=== PATIENT | male | born 1945 | race Hispanic/Latino ===

== ENCOUNTER 2023-01-03 14:44 | Emergency (ER) | payer OTHER, MEDICARE ==
[~2023-01-03] VITALS: Ht 165.1 cm; Wt 90.7 kg
[2023-01-03 14:44] VITALS: BP 133/71
--- NOTE | 2023-01-03 14:50 | ER.PDOC ---
General Chief Complaint: Requesting Medical Care Stated Complaint: CHEST PAIN Time seen by MD: 14:49 Source: patient Exam Limitations: no limitations History of Present Illness Initial Comments 77 yo M has had some somewhat atypical chest pain for a few hours today. Traveling cross[place]country in an RV with his from [place] to [place]. Has a cardiac history, stenting, but most recently more than 10 years ago. Follows up regularly with health aide, last cath 1-2 years ago +/-. Timing/Duration: 1-3 hours Severity/Quality: mild, moderate Radiation: no radiation Activities at Onset: other (driving) Prior CP/Workup: Other (prior need for stents) Aspirin Today: 81 mg x 1 Prior symptoms/Treatment: Similar symptoms previous (albeit remotely) Past Medical History Medical History: cardiac problems Surgical History: other (stents) Family History Significant Family History: no pertinent family hx Social History Smoking: non-smoker Reviewed Nursing Reviewed: Vital Signs, Abn. Noted, Nursing Assessment Constitutional: no symptoms reported; denies diaphoresis EENTM: no symptoms reported Respiratory: denies shortness of breath Cardiovascular: chest pain Gastrointestinal: denies nausea, denies vomiting Genitourinary: no symptoms reported Musculoskeletal: no symptoms reported Skin: no symptoms reported Psychiatric/Neurological: no symptoms reported All Other Systems: Reviewed and Negative Progress Progress Long distance traveling, elevated d-dimer - I will check CTA. This being done, two negative troponins in a row, CTA negative. Appears noncardiac. I have discussed followup in clinic, with return to this or another ER should symptoms worsen or more concerning symptoms develop. EKG/XRAY/CT/US EKG: NSR (NSR. Incomplete RBBB. Old Q waves II, III. Some latral TWIs most notable in V1,V2, largely unconcerning in character. Good TWP no ST elevations or depressions.) XRAY: chest XRAY Comments: NAD CT Comments: no PE. see report ER DEPART Departure Time of Disposition: 18:20 Disposition: 01 HOME / SELF CARE / HOMELESS Impression: Primary Impression: Atypical chest pain Condition: Stable Patient Instructions: Chest Pain (Nonspecific), [id number] Referrals: PCP,UNKNOWN (PCP) PRIMARY CARE PROVIDER Additional Instructions: Your pain does not seem to be from your heart, and it's ok for you to go and follow up in clinic. However, if your pain returns or is worse or you start to develop cold sweats or difficulty breathing you should return to this or another ER for additional testing and treatment. Duration or Time Spent with Pa: 20 min CAREN HURST MD January 03, 2023 14:50
[2023-01-03 15:00] LABS: BASOPHIL % 0.5 % (0.0-0.2); EOSINOPHIL # 0.5 10^3/uL (0.0-0.2); LYMPHOCYTES # 1.76 10^3/uL1 (1.0-4.8); LYMPHOCYTES % 23.6 % (24.0-44.0); MEAN CORP HGB 28.8 pg (26-34); MONOCYTES # 0.8 10^3/uL (0.3-0.8); MONOCYTES % 10.6 % (5.0-12.0); NEUTROPHIL # 4.4 10^3/uL (1.8-7.7); NEUTROPHILS % 59.2 % (41.0-85.0); RED CELL DISTRIBUTION WIDTH 13.2 % (11.5-14.5)
--- NOTE | 2023-01-03 15:21 | NUR ---
CRITICAL LAB D-DIMER IS 0.63, EDP NOTIFIED.
[2023-01-03 15:27] LABS: CARBON DIOXIDE 30.2 mmol/L (20.0-32)
--- NOTE | 2023-01-03 15:28 | DIREP ---
PROCEDURE:CHEST 1 VIEW COMPARISON:None. INDICATIONS:chest pain FINDINGS: LUNGS/PLEURA:Stable interstitial thickening throughout both lungs suggesting chronic change. No new infiltrate. VASCULATURE:Normal. Unremarkable pulmonary vasculature. CARDIAC:Prominent cardiac silhouette MEDIASTINUM:Calcified plaque in the aorta. Left chest cardiac device BONES:Sternotomy changes. Right shoulder arthroplasty OTHER:Negative. CONCLUSION:Stable cardiomegaly and chronic interstitial thickening. Dictated by: Chele Meyer M.D. on 01/03/2023 at 03:24 PM
--- NOTE | 2023-01-03 16:43 | DIREP ---
PROCEDURE:CT PULMONARY ANGIOGRAM TECHNIQUE:Following the intravenous administration of contrast material, axial cuts were obtained through the chest. Sagittal, coronal, and pulmonary artery MIP post-processing reconstructions are provided. Satisfactory pulmonary arterial contrast opacification was achieved. The images were viewed at lung and soft tissue settings. COMPARISON:[facility], , XRAY CHEST SINGLE VW, 01/03/2023, 03:15 PM. INDICATIONS:chest pain, elevated d-dimer FINDINGS: PULMONARY ARTERIES:Patent. LUNGS:Mild bilateral lower lobe ground-glass hazy opacity suggesting atelectasis, pneumonia or edema. PLEURA:No pleural effusion. CARDIAC:Heart size within normal limits. Status post CABG. THORACIC AORTA:No aneurysm MEDIASTINUM:No adenopathy BONES:Sternotomy. Degenerative changes in the spine. Anterior wedging of mid thoracic vertebra may be old fractures or physiologic wedging. Right shoulder arthroplasty. THYROID:Normal. OTHER:No additional findings. CONCLUSION: 1. Negative for pulmonary embolism. 2. Mild haziness in both lung bases, likely atelectasis or possibly pneumonitis in the appropriate clinical setting. Dictated by: Chele Meyer M.D. on 01/03/2023 at 04:37 PM
--- NOTE | 2023-01-04 06:51 | PCM.EKG ---
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
== END 2023-01-03 18:27 | disposition home or self-care (01) ==
LOC: ER 14:44
DX: R07.89 Other chest pain (principal); Z95.5 Presence of coronary angioplasty implant and graft
CPT/HCPCS: 99285; 71275; 71045; 80053; 85025; 36415; 85379; 84484 ×2; 82553; 83880; 82550; 85610; 85730; 93005; Q9965